=== PATIENT | male | born 1945 | race Caucasian/White ===

== ENCOUNTER 2024-08-23 06:04 | Day surgery (SDC) | payer OTHER, SELFPAY ==
[2024-08-07 13:18] LABS: % Basophils 0.5 % (0-2); % Eosinophils 4.5 % (0-6); % Immature Granulocytes 0.2 % (0-0.5); % Lymphocytes 14.4 % (20.5-51.1); % Monocytes 13.2 % (1.7-9.3); % Neutrophils 67.2 % (42.2-75.2); Absolute Eosinophils 0.3 10^3/uL (0-0.7); Absolute Lymphocytes 0.8 10^3/uL (1.2-3.4); Absolute Monocytes 0.8 10^3/uL (0.1-0.6); Absolute Neutrophils 3.9 10^3/uL (1.4-6.5); Hemoglobin 15.1 g/dL (13.0-18.0); Mean Corp Hgb Conc. 34.3 g/dL (33.0-37.0); Mean Corpuscular Hgb 32.5 pg (27.0-31.0); Mean Corpuscular Volume 94.6 fL (80.0-94.0); Mean Platelet Volume 9.5 fL (7.4-10.4); Nucleated Red Blood Cells % 0 % (-); Platelet Count 191 10^3/uL (130-400); Red Blood Cell Count 4.65 10^6/uL (4.70-6.10); Red Cell Dist. Width 12.4 % (11.5-14.5); White Blood Cell Count 5.8 10^3/uL (4.8-10.8)
[2024-08-07 13:28] LABS: INR 1.25; PT 15.5 Sec (11.4-14.6)
[2024-08-07 13:37] LABS: ALT (SGPT) 27 U/L (0-50); AST (SGOT) 29 U/L (17-59); Albumin 4.2 g/dl (3.5-5.0); Alkaline Phosphatase 97 U/L (38-126); Blood Urea Nitrogen 29 mg/dl (9-20); Calcium 9.9 mg/dl (8.4-10.2); Carbon Dioxide 28 mmol/L (22-30); Chloride 103 mmol/L (98-107); Glucose 113 mg/dl (70-99); Magnesium 2.1 mg/dl (1.6-2.3); Potassium 4.7 mmol/L (3.5-5.1); Sodium 140 mmol/L (135-145); Total Bilirubin 1.5 mg/dl (0.2-1.3); Total Protein 7.2 g/dl (6.3-8.2); eGFR > 60.00
[2024-08-07 13:50] VITALS: BMI 28.0
[2024-08-23] VITALS (12 sets, daily range): BP systolic 113–154; BP diastolic 71–97; BMI 27.2
[2024-08-23 08:43] LABS: ACT-LR - POC 218 Seconds (116-155)
[2024-08-23 09:03] LABS: ACT-LR - POC 261 Seconds (116-155)
--- NOTE | 2024-08-23 09:17 | ITS.CL.ABL ---
[employer] Manager - Ablation
Ablation
Procedure Report:
ELECTROPHYSIOLOGY ABLATION STUDY
�
DATE:: August 23, 2024�����������������������������REFERRING: Dr. Blackwell
�
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 Prior pulmonary vein isolation procedure in 2011 with a first generation cryoballoon and reisolation of the left pulmonary veins in 2019 with radiofrequency
energy.
�
HISTORY: See H and P.� As above
�
ANTIARRHYTHMIC DRUG: Toprol until
�
PRE-PROCEDURE CARLOS A: No interatrial thrombus
�
PRESENTING RHYTHM: By activation and entrainment characterized as left atrial posterior wall flutter with a second limb around the mitral isthmus which was 12 ms PPI greater than tachycardia cycle length suggesting a slower secondary limb
�
'TIME-OUT':��called and confirmed.
�
SEDATION/ANESTHESIA:��provided via the anesthesia department using general anesthesia (LMA).
�
INTRAVENOUS/ARTERIAL ACCESS:
Right femoral venous - 10 Fr,
Left femoral venous - 8 Fr, 6 Fr
Hlewli-ex-itipy suture was placed to the right and left femoral venous access sites.
Ultrasound guidance for bilateral femoral vein access was utilized by me to obtain access with demonstration of normal anatomy
CHADS-VASC Score:
�
HAS-Bled Score
�
PROCEDURE:
1.��A decapolar CS catheter was placed within the CS for mapping and pacing.��This was also used as the reference catheter for the 3-D map. The patient presented in 220 ms atrial tachycardia and activation and entrainment the right atrium suggested
passive activation. After transseptal as described below activation and entrainment mapping demonstrated left atrial posterior wall flutter with PPI equal to tachycardia cycling throughout the entire posterior wall and a second limb through the
mitral isthmus although PPI was 12 to 15 ms greater than tachycardia cycle length in the mitral isthmus at the beginning of procedure. Once the PFA catheter was brought to the left atrium and flower pose deliveries to the posterior wall
transitioned to clockwise mitral flutter and the posterior wall was then out of the circuit. After 100 mics of intra atrial nitroglycerin flower pose at the mitral isthmus slowed and then terminated tachycardia to sinus rhythm with bidirectional
block intra isthmus conduction time 126 ms with coronary sinus pacing. Additional lesions and flower pose were given to the posterior wall roof and floor leading to electrical silence in the left atrial posterior wall as well as electrical signs
across the mitral isthmus in the lateral position.
�
2. The intracardiac ultrasound catheter was positioned in the RA to identify the FO for targeting of transseptal puncture, assist��in identification of the pulmonary vein ostia, monitoring pre and post ablation pulmonary vein flow velocities,
monitoring for 'bubble' formation during RF application as a sign of thermal injury,��and to monitor for pericardial effusion during mapping and ablation procedure.���Left atrial size, LV ejection fraction, and pulmonary vein flows were monitored
pre and post ablation procedure. The other valves were inspected and found to be free of significant regurgitation or stenosis.
�
3.��Half of the calculated heparin bolus was administered prior to the first transeptal puncture.��Transseptal puncture was performed to diagnose RA and LA pressure so that safetey of LA mapping and ablation could be further assessed, and to access
the left atrium and pulmonary veins for mapping and ablation.��This entailed advancing an 16 Arabic sheath and RF wire apparatus with dilator into the superior vena cava and withdrawing both (monitoring intracardiac ultrasound, fluoroscopy and tip
pressure) with the tip oriented toward the atrial septum.��The fossa ovalis was engaged (indicated by sudden displacement of the sheath tip as well as tenting of the fossa seen on intracardiac ultrasound).��Left atrial access required a pass with
the Brockenbrough needle extended.��Left atrial catheter position was confirmed by pressure monitoring (RA mean pressure 8 mm Hg and LA mean presure 14 mm Hg), LA saturation ( 99 %),��as well as fluoroscopy.��The sheath was advanced over the dilator
and positioned in the left atrium.���The remainder of the calculated heparin bolus was administered and heparin was
infused to maintain ACT at 300 -350 seconds throughout the case.
�
4.��RA pacing was performed via the proximal decapolar poles and LA pacing was performed via the distal decapolr poles.
�
5. A quadrapolar catheter was first positioned at the His position for His Bundle recording which was tagged via the 3-D Navex sytem, and then passed to the RVA for RV pacing and recording.
�
6. The multipolar catheter and the Lydia pulse PFA catheter were placed in each of the LIPV, LSPV, RSPV and the RIPV.��
�
7.��Next, a 3-D map was created using Navex.���A 3-D reconstructed CT image was compared to the 3-D Navex map to assist in anatomic interpretation, mapping and ablation.��The CT image and the NavX image were fused.
�
8. As above the posterior wall flutter and mitral flutter were dealt with initially and once the patient converted to sinus rhythm the pulmonary veins were demonstrated to have entrance and exit block at baseline. Prior to ablation in atrial
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 In sinus rhythm voltage mapping demonstrated electrical silence of the posterior wall mitral isthmus and each of the pulmonary veins
with exit block from all 4 pulmonary veins and the posterior wall. Patient was noninducible for any other tachyarrhythmias.
9. Normal sinus node and AV stevenson function were noted. No change in ST segments or regional wall motion abnormalities were noted at the end of procedure
�
�
TOTAL FLOURO TIME: 12.6 minutes
�
TOTAL RF DURATION: 0 minutes
�
REVERSAL OF HEPARIN: 35 mg of protamine, slow IV administration
�
COMPLICATIONS:
None
Intracardiac US shows no pericardial effusion post ablation.
�
SUMMARY:��
Complex left atrial mapping and ablation.
Clinical arrhythmia was double loop reentry left atrial flutter with termination of arrhythmia after posterior wall isolation and and lateral mitral isthmus ablation with the Lydia pulse catheter in the flower pose. The pulmonary veins were isolated
at baseline and at the end of procedure
�
RECOMMENDATIONS:
1. Ambulate in 4 hours
2. Resume anticoagulation
3.� Stop diltiazem
4.��Consider same-day discharge
�
Copy to: Dr. Blackwell at [facility] cardiology
�
--- NOTE | 2024-08-23 14:40 | W.PN.UPDATE ---
Update Note
Progress Note Update
79 yo WM s/p PVI (Same day). He denies cp, sob, tara diet, voiding, amb w/o dizziness, EKG SR, b/l groins c/d/i no HT soft. He will continue OAC Eliquis dose at home tonight. He will stop diltiazem and continue toprol. Activity restrictions reviewed.
He will f/u Dr. Blackwell in 2 mo. He is for d/c home after 2pm.
SUMMARY:��
Complex left atrial mapping and ablation.
Clinical arrhythmia was double loop reentry left atrial flutter with termination of arrhythmia after posterior wall isolation and and lateral mitral isthmus ablation with the Lydia pulse catheter in the flower pose. The pulmonary veins were isolated
at baseline and at the end of procedure
�
RECOMMENDATIONS:
1. Ambulate in 4 hours
2. Resume anticoagulation
3.� Stop diltiazem
4.��Consider same-day discharge
�
Copy to: Dr. Blackwell at [facility] cardiology
== END 2024-08-23 14:15 | disposition home or self-care (01) ==
LOC: CATH 06:04
PROVIDERS: ATTENDING PHYSICIAN Internal Medicine Cardiovascular Disease; FAMILY PHYSICIAN Student in an Organized Health Care Education/Training Program; OTHER PHYSICIAN Internal Medicine Cardiovascular Disease
DX: I48.4 Atypical atrial flutter (principal); I48.0 Paroxysmal atrial fibrillation; Z79.01 Long term (current) use of anticoagulants; I47.19 Other supraventricular tachycardia; I10 Essential (primary) hypertension; E78.5 Hyperlipidemia, unspecified; K21.9 Gastro-esophageal reflux disease without esophagitis; G47.33 Obstructive sleep apnea (adult) (pediatric); E07.9 Disorder of thyroid, unspecified; Z79.899 Other long term (current) drug therapy; G58.8 Other specified mononeuropathies
CPT/HCPCS: C1732; C1894; C1730; C1892; C1759; 36415; 75572; 80053; 83735; 85025; 85347; 85610; 86850; 86900; 86901; 93005; 93653; 93655; C1733; C1766; Q9967